=== PATIENT | male | born 1970 | race Caucasian/White ===

== ENCOUNTER 2022-02-03 04:54 | Emergency (ER) | payer OTHER ==
[2022-02-03] MEDS ORDERED: Ketorolac Tromethamine 30 MG/ML VIAL ONE (05:36)
[2022-02-03] MEDS ORDERED: Acetaminophen/Codeine 30-300mg Tablet ONE (05:36)
[2022-02-03] MEDS ORDERED: Cyclobenzaprine 10 MG TAB ONE (05:36)
== END 2022-02-03 05:45 | disposition home or self-care (01) ==
LOC: CSHERS 04:54
DX: U07.1 COVID-19 (principal); M43.6 Torticollis; F17.210 Nicotine dependence, cigarettes, uncomplicated
CPT/HCPCS: 96372; 99283; J1885; U0003; U0005

== ENCOUNTER 2022-02-04 09:16 | Emergency (ER) | payer OTHER ==
[2022-02-04] MEDS ORDERED: Acetaminophen 500 MG TAB ONE (10:40)
[2022-02-04] MEDS ORDERED: Ketorolac Tromethamine 30 MG/ML VIAL ONE (10:40)
== END 2022-02-04 11:42 | disposition home or self-care (01) ==
LOC: CSHERS 09:16
DX: M54.12 Radiculopathy, cervical region (principal); F17.210 Nicotine dependence, cigarettes, uncomplicated
CPT/HCPCS: 96372; 99283; J1885

== ENCOUNTER 2022-02-28 06:13 | Emergency (ER) | payer OTHER ==
[2022-02-28] MEDS ORDERED: Lorazepam 2 MG/ML VIAL ONE (06:33)
[2022-02-28 06:44] LABS: #Eosinphils 0.2 10x3/uL (0.0-0.5); #Monocytes 0.6 10x3/uL (0.0-1.1); #Neutrophils 2.7 10x3/uL (1.5-8.4); %Basophils 0.5 % (0.0-2.0); %Lymphocytes 35.7 % (18.0-47.0); %Monocytes 10.3 % (0.0-10.0); Hemoglobin 12.3 g/dL (13.5-17.5); Mean Corpuscular HGB CONC 33.6 g/dL (32.0-36.0); Mean Corpuscular Hemoglobin 30.3 pg (27.0-33.0); Mean Corpuscular Volume 90.1 fl (81.2-95.1); Mean Platelet Volume 9.9 fl (7.4-10.4); Platelet Count 238 10x3/uL (150-450); RBC Distribution Width 13.2 % (11.5-14.5); Red Blood Cell (RBC) Count 4.06 10x6/uL (4.32-5.72); White Blood Cell (WBC) Count 5.5 10x3/uL (3.5-10.5)
[2022-02-28 07:03] LABS: ALT (SGPT) 13 U/L (8-55); AST (SGOT) 14 U/L (5-34); Albumin 3.8 g/dL (3.5-5.0); Alkaline Phosphatase 56 U/L (40-110); Anion Gap 15 mmol/L (10-20); BUN (Urea Nitrogen) 21 mg/dL (8.4-25.7); Bilirubin, Total 0.3 mg/dL (0.2-1.2); Calc. Creatinine Clearance 0 mL/min (70-130); Calcium 9.3 mg/dL (7.8-10.44); Carbon Dioxide 22 mmol/L (22-29); Chloride 108 mmol/L (98-107); Estimated GFR 104; Glucose 102 mg/dL (70-105); Potassium 4.6 mmol/L (3.5-5.1); Protein, Total 6.8 g/dL (6.0-8.3); Sodium 140 mmol/L (136-145)
[2022-02-28 07:40] LABS: Amphetamine Detected (NotDetected); Barbiturates Screen Not Detected (NotDetected); Benzodiazepine Screen Not Detected (NotDetected); Cocaine Metabolite Screen Not Detected (NotDetected); Methadone Not Detected (NotDetected); Methamphetamine Detected (NotDetected); Opiate Screen Not Detected (NotDetected); Oxycodone Screen Not Detected (NotDetected); Phencyclidine (PCP) Not Detected (NotDetected); THC/Cannabinoid Screen Detected (NotDetected); Tricyclic Screen Not Detected (NotDetected)
[2022-02-28] MEDS ORDERED: Cyclobenzaprine 10 MG TAB ONE (07:58)
[2022-02-28] MEDS ORDERED: Ketorolac Tromethamine 30 MG/ML VIAL ONE (07:58)
== END 2022-02-28 08:07 | disposition home or self-care (01) ==
LOC: CSHERS 06:13
DX: M54.2 Cervicalgia (principal); R51.9 Headache, unspecified; R20.2 Paresthesia of skin; N40.0 Benign prostatic hyperplasia without lower urinary tract symptoms; F17.210 Nicotine dependence, cigarettes, uncomplicated
CPT/HCPCS: 70450; 80053; 80306; 84484; 85025; 93005; 96374; 96375; J1885; J2060

== ENCOUNTER 2022-03-29 22:04 | Emergency (ER) | payer OTHER ==
[2022-03-29] MEDS ORDERED: Bacitracin 1 PK ONE (22:43)
[2022-03-29] MEDS ORDERED: Acetaminophen 500 MG TAB ONE (22:47)
== END 2022-03-29 22:50 | disposition home or self-care (01) ==
LOC: EEVIPCON 22:04 → CSHERS 22:04
DX: S01.81XA Laceration without foreign body of other part of head, initial encounter (principal); R45.851 Suicidal ideations; N40.0 Benign prostatic hyperplasia without lower urinary tract symptoms; F17.210 Nicotine dependence, cigarettes, uncomplicated; W22.8XXA Striking against or struck by other objects, initial encounter
CPT/HCPCS: 12002